=== PATIENT | female | born 1990 | race Caucasian/White ===

== ENCOUNTER → 2016-04-16 | Outpatient (CLI) | payer OTHER ==
--- NOTE | 2016-04-16 19:25 | REP ---
Clinical: Anatomical evaluation. Comparison: None . Findings: Examination demonstrates a single live intrauterine in variable presentation. motion is identified by technologist. Placenta is noted posteriorly and grade zero without evidence for placenta previa or abruption. Amniotic fluid volume is normal. Cervix measures 4.0 cm in length and appears closed. No evidence for nuchal cord. Gestational age by LMP 20 weeks 0 days with HENRY 09/03/2016 . Gestational age by current measurements 20 weeks 1 day with HENRY 09/02/2016 . FHR equals 136 beats per minute. BPD 4.6 cm 19 weeks 6 days HC 16.8 cm 19 weeks 3 days AC 16.0 cm 21 weeks 1 day FL 3.2 cm 19 weeks 6 days HL 3.1 cm 20 weeks 0 days HC/AC ratio 1.05 Estimated weight 353 grams ( 63rd percentile). Anatomical assessment demonstrates normal structures including cranium, choroid plexus, cavum, cerebellum/posterior fossa, facial features, lungs, diaphragm, stomach, cord insertion/three-vessel cord, bladder, spine, and extremities. Limited evaluation of the heart/ventricular outflow tract and kidneys. Impression: 1. Single live intrauterine in variable presentation demonstrating appropriate interval growth. 2. Limited evaluation of the heart and kidneys. Remainder of the anatomical assessment is complete and normal. Signed by Dilan Burns MD 04/16/2016 07:17 P
== END ==
LOC: M RAD 17:01
PROVIDERS: ATTEND Advanced Practice Midwife
DX: Z36 Encounter for antenatal screening of mother (principal); Z3A.20 20 weeks gestation of pregnancy

== ENCOUNTER → 2016-05-13 | Outpatient (CLI) | payer OTHER ==
--- NOTE | 2016-05-14 06:55 | REP ---
Clinical: Anatomical evaluation. Comparison: 04/16/2016 . Findings: Examination demonstrates a single live intrauterine in cephalic presentation. motion is identified by technologist. Placenta is noted posteriorly and grade 0 without evidence for placenta previa or abruption. Anterior succenturiate lobe noted. Amniotic fluid volume is normal. Cervix measures 4.4 cm in length and appears closed. No evidence for nuchal cord. Gestational age by LMP 23 week 6 days with HENRY 09/03/2016 . Gestational age by current measurements 24 weeks 1 day with HENRY 09/01/2016 . FHR equals 149 beats per minute. Estimated weight 663 grams ( eight 51st percentile). Anatomical assessment demonstrates normal structures including cranium, choroid plexus, cavum, cerebellum/posterior fossa, facial features, lungs, four-chamber heart/ventricular outflow tracts, diaphragm, stomach, cord insertion/three-vessel cord, kidneys/bladder, spine, and extremities. Impression: 1. Single live intrauterine in cephalic presentation demonstrating appropriate interval growth. 2. Anatomical assessment is complete and normal. 3. Small anterior succenturiate lobe to the placenta. Signed by Dilan Burns MD 05/14/2016 06:48 A
== END ==
LOC: M RAD 15:54
PROVIDERS: ATTEND Advanced Practice Midwife
DX: Z36 Encounter for antenatal screening of mother (principal); Z3A.24 24 weeks gestation of pregnancy

== ENCOUNTER → 2016-05-18 | Outpatient (REF) | payer OTHER | LOC: M LAB REF 09:37 | PROVIDERS: ATTEND Advanced Practice Midwife | DX: K91.2 Postsurgical malabsorption, not elsewhere classified (principal) ==

== ENCOUNTER → 2016-06-11 | Outpatient (CLI) | payer OTHER ==
[2016-06-11 13:27] LABS: MEAN CORPUSCULAR HEMOGLOBIN 31.2 pg (27.0-33.0); MEAN CORPUSCULAR HGB CONC 32.9 g/dl (32.0-36.5); MEAN CORPUSCULAR VOLUME 94.9 fl (80.0-96.0); RED CELL DISTRIBUTION WIDTH 13.5 % (11.5-14.5)
== END ==
LOC: M SMT 10:45
PROVIDERS: ATTEND Advanced Practice Midwife
DX: Z36 Encounter for antenatal screening of mother (principal)
CPT/HCPCS: 36415; 85027; 86850; 86900; 86901; J2790

== ENCOUNTER → 2016-07-08 | Outpatient (CLI) | payer OTHER ==
--- NOTE | 2016-07-09 05:01 | REP ---
Clinical: Growth evaluation. Comparison: 05/13/2016 . Findings: Examination demonstrates a single live intrauterine in cephalic presentation. motion is identified by technologist. Placenta is noted posteriorly and grade II without evidence for placenta previa or abruption. Amniotic fluid volume is normal. Cervix measures 3.8 cm in length and appears closed. Nuchal cord cannot be excluded. Gestational age by LMP 31 weeks 6 days with HENRY 09/03/2016 . Gestational age by current measurements 32 weeks 4 day with HENRY 08/29/2016 . FHR equals 163 beats per minute. Estimated weight 2114 grams ( 68th percentile). Amniotic fluid index equals 22.2 cm. Limited anatomical assessment is unremarkable. Impression: Single live advanced gestation in cephalic presentation demonstrating appropriate interval growth. Nuchal cord cannot be excluded. Amniotic fluid index upper limits of normal. No gross abnormalities identified. Signed by Dilan Burns MD 07/09/2016 04:52 A
== END ==
LOC: M RAD 15:45
PROVIDERS: ATTEND Obstetrics & Gynecology
DX: Z36 Encounter for antenatal screening of mother (principal); Z3A.31 31 weeks gestation of pregnancy

== ENCOUNTER → 2016-08-05 | Outpatient (REF) | payer OTHER | LOC: M LAB REF 12:55 | PROVIDERS: ATTEND Obstetrics & Gynecology | DX: Z36 Encounter for antenatal screening of mother (principal) ==

== ENCOUNTER → 2016-08-26 | Outpatient (CLI) | payer OTHER ==
[~2016-08-26] MED LIST: ACET50TA PO; IBUP-1114 PO; PRENTAB55 PO
--- NOTE | 2016-08-26 21:02 | REP ---
Clinical: Growth evaluation. Comparison: 07/08/2016 . Findings: Examination demonstrates a single live intrauterine in cephalic presentation. motion is identified by technologist. Placenta is noted posteriorly and grade III without evidence for placenta previa or abruption. Small anterior succenturiate lobe cannot be excluded. Amniotic fluid volume is normal. No evidence for nuchal cord. Gestational age by LMP 38 weeks 6 days with HENRY 09/03/2016 . Gestational age by current measurements 38 weeks 2 days with HENRY 09/07/2016 . FHR equals 168 beats per minute. BPD 9.5 cm 38 weeks 6 days HC 34.0 cm 39 weeks 1 day AC 39.1 cm - - FL 7.3 cm 37 weeks 3 days HL 6.5 cm 37 weeks 4 days HC/AC ratio 0.87 Estimated weight 4275 grams (greater than 97 percentile). Amniotic fluid index equals 20.2 cm (7.2 - 22.7). Impression: 1. Single live intrauterine in cephalic presentation. 2. measurements as described above. 3. The estimated weight may not be accurate as abdominal circumference measurements were not included in the calculations. 4. Amniotic fluid volume within normal limits. Signed by Dilan Burns MD 08/26/2016 08:54 P
== END ==
LOC: M RAD 16:55
PROVIDERS: ATTEND Advanced Practice Midwife
DX: Z36 Encounter for antenatal screening of mother (principal)

== ENCOUNTER 2016-08-30 02:05 | Inpatient (IN) | payer OTHER ==
[2016-08-30] VITALS (34 sets, daily range): BP systolic 100–151; BP diastolic 52–77
[~2016-08-30] VITALS: Ht 165.1 cm; Wt 102.0 kg
[2016-08-30] MEDS ORDERED: PRENTAB55 PO (03:20)
[2016-08-30] MEDS ORDERED: LACTATED RINGER'S 1000 ML IV STA (04:54)
[2016-08-30] MEDS ORDERED: BUTORPHANOL 2 MG/ML INJ (J0595) IV ONE (05:00)
[2016-08-30] MEDS ORDERED: PROMETHAZINE INJ 25 MG/ML VIAL (J2550) IM ONE (05:00)
[2016-08-30 05:08] LABS: MEAN CORPUSCULAR HEMOGLOBIN 30.9 pg (27.0-33.0); MEAN CORPUSCULAR HGB CONC 33.6 g/dl (32.0-36.5); MEAN CORPUSCULAR VOLUME 92.1 fl (80.0-96.0); RED CELL DISTRIBUTION WIDTH 13.6 % (11.5-14.5); WHITE BLOOD COUNT 12.8 K/mm3 (4.0-10.0)
--- NOTE | 2016-08-30 06:19 | HPE ---
DATE OF ADMISSION: 08/30/2016 26-year-old 1, estimated date of delivery 09/03/2016 presents at 39 weeks 3 days with reports of loss of fluid and contractions starting around 0030. Denies bleeding. Fetus is active. Last normal menstrual period 11/28/2015 for HENRY of 09/03/2016, sonogram at 8 weeks confirmed date. Anatomy scan within normal limits except for possible succenturiate lobe. Growth sonogram 08/26 shows SIUP vertex. Estimated weight 4275 grams. No known drug allergies. Medical-surgical: Gastric bypass in 2011. Family history of developmental delay. SOCIAL HISTORY: Single. Father of the baby present and supportive. Denies tobacco, alcohol, drugs or abuse. OBJECTIVE: Prepregnancy weight 190, total weight gain 42 pounds. A negative, antibody negative, received RhoGAM, rubella immune, VDRL, Hep B, Hep C, HIV, gonorrhea, Chlamydia all negative. 1-hour glucose not done due to history of bypass. Glucose was monitored times 1 week with normal values. Group B strep is negative. Vital signs are stable. She is breathing with contractions. Abdomen is soft, gravid, longitudinal lie. Bedside sonogram confirms vertex presentation. heart 135, moderate variability with excels. Uterine contractions difficult to trace due to habitus and patient motion. Patient and partner state they are about 3-5 minutes apart. Sterile speculum exam moderate pooling of milky fluid. Negative Nitrazine. Negative fern. Sterile vaginal exam initially 3 cm, 90% -3 station. Progressed to 5 cm, 90% -2 station with a bulging bag of water. ASSESSMENT: Primipara at term, active labor, category 1 tracing. PLAN: Admit. The patient is considering IV meds versus epidural. Anticipate normal spontaneous vaginal . MTDD
[2016-08-30] MEDS: PRENATAL VITAMINS CHEWABLE TABLET PO SCH (09:00)
[2016-08-30] MEDS ORDERED: FENTANYL 2MCG/ML ROPIVACAINE 0.2% IN 0.9% NACL 200ML IVBAG As Ordered ONE (09:35)
[2016-08-30] MEDS ORDERED: ONDANSETRON 4MG/2ML VIAL (J2405) IV PRN ×2 (12:00→19:45)
[2016-08-30] MEDS ORDERED: EPIDURAL/PCA KEYS XX PRN (12:00)
[2016-08-30] MEDS ORDERED: ePHEDrine SULFATE 25 MG/5 ML(5MG/ML) SYRINGE IV PRN (12:00)
[2016-08-30] MEDS ORDERED: NALOXONE INJ 0.4 MG/1 ML VIAL (J2310) IV PRN (12:00)
[2016-08-30] MEDS ORDERED: FENTANYL/ROPIVACAINE/NACL BAG 200 ML EPIDURAL SCH (12:00)
[2016-08-30] MEDS ORDERED: LACTATED RINGER'S 1000 ML IV PRN (12:00)
[2016-08-30] MEDS ORDERED: REFRIGERATOR IV KEYS XX PRN (12:00)
[2016-08-30] MEDS ORDERED: LR 1,000 ML IV SCH (12:00)
[2016-08-30] MEDS ORDERED: EPIDURAL COMMENT XX SCH (12:00)
[2016-08-30] MEDS ORDERED: diphenhydrAMINE INJ 50MG/ML VIAL (J1200) IV PRN (12:00)
[2016-08-30] MEDS ORDERED: OXYTOCIN 30 UNITS IN 0.9% NaCl 500ML IV BAG (J2590) As Ordered ONE (16:51)
[2016-08-30] MEDS ORDERED: OXYTOCIN DRIP 30 UNITS in APPROPRIATE DILUENT 1 EA IV SCH ×2 (17:45→19:34)
[2016-08-30] MEDS: LR 1,000 ML IV SCH ×2 (19:34→23:37)
[2016-08-30] MEDS ORDERED: RHOGAM 300 MCG (1500 IU) INJ (J2790) IM SCH (19:45)
[2016-08-30] MEDS ORDERED: IBUPROFEN 800 MG TAB PO PRN (19:45)
[2016-08-30] MEDS ORDERED: PROMETHAZINE 25 MG TAB PO PRN (19:45)
[2016-08-30] MEDS ORDERED: DOCUSATE SODIUM 100 MG CAP PO PRN (19:45)
[2016-08-30] MEDS ORDERED: MEASLES,MUMPS,RUBELLA VACCINE INJ (MMR-II) (90707) SC SCH (19:45)
[2016-08-30] MEDS ORDERED: DIBUCAINE 1% OINTMENT 30GM TOP PRN (19:45)
[2016-08-30] MEDS: OXYTOCIN DRIP 30 UNITS in APPROPRIATE DILUENT 1 EA IV SCH ×2 (19:52→19:53)
[2016-08-30] MEDS: ACETAMINOPHEN 500 MG TAB PO PRN (21:36)
[2016-08-31] MEDS ORDERED: LIDOCAINE 1% MDV INJ 50 ML VIAL INFIL ONE (01:45)
[2016-08-31] MEDS: ACETAMINOPHEN 500 MG TAB PO PRN ×3 (05:26→22:07)
[2016-08-31 06:07] VITALS: BP 114/59
[2016-08-31] MEDS: PRENATAL VITAMINS CHEWABLE TABLET PO SCH (08:36)
[2016-08-31] MEDS: LR 1,000 ML IV SCH ×2 (16:57→19:19)
[2016-08-31 18:02] VITALS: BP 130/66
[2016-09-01 05:53] VITALS: BP 109/58
[2016-09-01] MEDS: PRENATAL VITAMINS CHEWABLE TABLET PO SCH (08:57)
[2016-09-01] MEDS ORDERED: IBUP-1114 PO (09:53)
[2016-09-01] MEDS ORDERED: ACET50TA PO (09:53)
[2016-09-01] MEDS: ACETAMINOPHEN 500 MG TAB PO PRN (10:39)
== END 2016-09-01 14:00 | disposition home or self-care (01) | DRG 767 ==
LOC: M LDO 02:05 → M LDI 04:45 → M OBS 21:22
PROVIDERS: ADMIT Advanced Practice Midwife; ATTEND Advanced Practice Midwife
PROC: 10D17ZZ Extraction of Products of Conception, Retained, Via Natural or Artificial Opening (ICD-10-PCS; principal; 2016-08-30)
PROC: 0KQM0ZZ Repair Perineum Muscle, Open Approach (ICD-10-PCS; 2016-08-30)
PROC: 10E0XZZ Delivery of Products of Conception, External Approach (ICD-10-PCS; 2016-08-30)
PROC: 10907ZC Drainage of Amniotic Fluid, Therapeutic from Products of Conception, Via Natural or Artificial Opening (ICD-10-PCS; 2016-08-30)
PROC: 30233S1 Transfusion of Nonautologous Globulin into Peripheral Vein, Percutaneous Approach (ICD-10-PCS; 2016-08-31)
DX: O43.193 Other malformation of placenta, third trimester (principal); Z37.0 Single live birth; O72.2 Delayed and secondary postpartum hemorrhage; Z3A.39 39 weeks gestation of pregnancy; Z82.8 Family history of other disabilities and chronic diseases leading to disablement, not elsewhere classified; O70.1 Second degree perineal laceration during delivery; Z98.84 Bariatric surgery status

== ENCOUNTER → 2017-10-18 | Outpatient (REF) | payer OTHER | LOC: M LAB REF 08:32 | DX: Z12.4 Encounter for screening for malignant neoplasm of cervix (principal) ==

== ENCOUNTER → 2017-12-29 | Outpatient (CLI) | payer OTHER ==
[2017-12-29 14:44] LABS: BASO % 0.4 % (0.0-1.0); EOS # 0.1 10^3/uL (0.0-0.50); EOS % 0.9 % (0.0-3.0); HEMATOCRIT 41.8 % (36.0-47.0); HEMOGLOBIN 14.2 g/dl (12.0-15.5); IMMATURE GRANULOCYTE % 0.4 % (0-3.0); LYMPH # 1.7 10^3/uL (1.5-6.5); LYMPH % 16.2 % (24.0-44.0); MEAN CORPUSCULAR HEMOGLOBIN 30.7 pg (27.0-33.0); MEAN CORPUSCULAR VOLUME 90.5 fl (80.0-96.0); MONO # 0.6 10^3/uL (0.0-0.8); NEUTROPHILS # 7.8 10^3/uL (1.8-7.7); NEUTROPHILS % 76.1 % (36.0-66.0); PLATELET COUNT, AUTOMATED 247 10^3/uL (150-450); RED BLOOD COUNT 4.62 10^6/uL (4.00-5.40); RED CELL DISTRIBUTION WIDTH 12.6 % (11.5-14.5); WHITE BLOOD COUNT 10.3 10^3/uL (4.0-10.0)
[2017-12-29 16:49] LABS: CHLAMYDIA DNA AMPLIFICATION NEGATIVE (NEGATIVE); GC DNA AMPLIFICATION NEGATIVE (NEGATIVE)
[2017-12-30 14:07] LABS: HBsAg Prenatal NEGATIVE (NEGATIVE); RUBELLA IgG QUALITATIVE IMMUNE (IMMUNE)
[2017-12-30 14:29] LABS: HIV 1&2 SCREEN CENTAUR NEGATIVE (NEGATIVE)
[2017-12-30 14:29] LABS: HEPATITIS C VIRUS ABY INDEX < 0.0 INDEX (<0.8)
== END ==
LOC: M LABDRWAD 11:35
DX: Z36.89 Encounter for other specified antenatal screening (principal)
CPT/HCPCS: 86762

== ENCOUNTER → 2018-03-20 | Outpatient (CLI) | payer OTHER ==
[~2018-03-20] MED LIST changes: -ACET50TA PO; +MAPA500T2 PO
--- NOTE | 2018-03-20 20:09 | REP ---
Clinical: Anatomical evaluation. Comparison: 02/24/2018 . Findings: Examination demonstrates a single live intrauterine in cephalic presentation. motion is identified by technologist. Placenta is noted posterior and grade grade zero without evidence for placenta previa or abruption. Amniotic fluid volume is normal. Cervix measures 4.8 cm in length and appears closed. No evidence for nuchal cord. Gestational age by LMP 21 weeks 3 days with HENRY 07/28/2018 . Gestational age by current measurements 22 weeks 2 days with HENRY 07/22/2018 . FHR equals 153 beats per minute. Estimated weight 523 grams ( 90th percentile). Anatomical assessment demonstrates normal structures including cranium, choroid plexus, cavum, cerebellum/posterior fossa, facial features, lungs, four-chamber heart/right ventricular outflow tract, diaphragm, stomach, cord insertion/three-vessel cord, kidneys/bladder, and spine. Impression: Single live intrauterine in cephalic presentation demonstrating appropriate interval growth. Evaluation of the left cardiac ventricular outflow tract is again limited due to positioning. Remainder of the anatomical assessment is complete and normal. Electronically Signed by Dilan Burns MD 03/20/2018 08:01 P
== END ==
LOC: M RAD 10:02
PROVIDERS: ATTEND Advanced Practice Midwife
DX: Z36.89 Encounter for other specified antenatal screening (principal); Z3A.22 22 weeks gestation of pregnancy; O99.842 Bariatric surgery status complicating pregnancy, second trimester

== ENCOUNTER → 2018-05-05 | Outpatient (CLI) | payer OTHER ==
--- NOTE | 2018-05-05 18:51 | REP ---
OB ULTRASOUND: Real-time sonographic evaluation of the gravid uterus is performed. There is a single living intrauterine gestation. The estimated gestational age is 28 weeks 0 days based. EDC 07/28/2018. Today's measurements indicate appropriate growth. BPD 73 mm = 29 weeks 3 days, at the 80th percentile. HC 259 mm = 28 weeks 1 days, at the 553rd percentile. AC 257 mm = 29 weeks 6 days, at the 87th percentile. Femur length 54 mm = 28 weeks 5 days, at the 66th percentile. HC/AC ratio 1.01 within normal range. Estimated weight 1367 grams at the 74th percentile. Cervix is closed measures 4.2 cm in length. heart rate 136 beats per minute. Amniotic fluid within normal limits. ASPEN 16.5 within normal range of 9.4 to 22.8. SD ratio 3.37 and RI 0.70 within normal range. SEEN/GROSSLY UNREMARKABLE Lateral ventricles Yes Posterior fossa Yes Upper lip Yes Four-chamber heart Yes LVOT Yes RVOT Yes Stomach Yes Cord insertion Yes Three vessel cord Yes Kidneys Yes Bladder Yes Spine Yes position: Breech. Placenta: Fundal and grade 1 with no previa or abruption. Electronically Signed by aZch Bryant MD 05/08/2018 12:23 P
== END ==
LOC: M RAD 16:13
PROVIDERS: ATTEND Obstetrics & Gynecology
DX: O99.842 Bariatric surgery status complicating pregnancy, second trimester (principal); Z3A.38 38 weeks gestation of pregnancy

== ENCOUNTER → 2018-05-15 | Outpatient (CLI) | payer OTHER ==
[2018-05-15 12:36] LABS: HEMOGLOBIN 12.2 g/dl (12.0-15.5); MEAN CORPUSCULAR HEMOGLOBIN 30.8 pg (27.0-33.0); MEAN CORPUSCULAR VOLUME 93.4 fl (80.0-96.0); PLATELET COUNT, AUTOMATED 216 10^3/uL (150-450); RED BLOOD COUNT 3.96 10^6/uL (4.00-5.40); WHITE BLOOD COUNT 9.2 10^3/uL (4.0-10.0)
== END ==
LOC: M LABDRWAD 10:14
PROVIDERS: ATTEND Obstetrics & Gynecology
DX: O99.842 Bariatric surgery status complicating pregnancy, second trimester (principal); Z3A.00 Weeks of gestation of pregnancy not specified
CPT/HCPCS: 36415; 85027; 86780; 86850; 86900; 86901; J2790

== ENCOUNTER → 2018-06-20 | Outpatient (REF) | payer OTHER | LOC: M LAB REF 19:20 | PROVIDERS: ATTEND Physician Assistant Medical | DX: J02.9 Acute pharyngitis, unspecified (principal) ==

== ENCOUNTER → 2018-06-23 | Outpatient (CLI) | payer OTHER ==
--- NOTE | 2018-06-24 07:32 | REP ---
FOLLOWUP OB ULTRASOUND: HISTORY: Growth. COMPARISON: 05/06/2018 A single intrauterine is present in breech presentation. Biparietal diameter 9.3 cm, Gestational age 37 weeks 5 days. Head circumference 33.5 cm, gestational age 38 weeks 2 days Abdominal circumference 32.6 cm, gestational age 36 weeks 3 days Femur length 6.8 cm, gestational 35 weeks 1 day. Humerus length 6.1 cm, gestational age 35 weeks 0 days. heart rate 139 beats per minute. motion is present. weight is 2949 grams. gender is documented as female. The placenta is right lateral in location. There is no placenta previa or abruption. The cord is draped over the neck. The amniotic fluid index is 17.4 cm. Cervix length is 4 cm. IMPRESSION: A single intrauterine is present in breech presentation. Gestational age by ultrasound is 36 weeks 4 days. Electronically Signed by Omar Eugene MD 06/24/2018 07:58 A
== END ==
LOC: M RAD 16:36
PROVIDERS: ATTEND Advanced Practice Midwife
DX: O99.843 Bariatric surgery status complicating pregnancy, third trimester (principal); Z3A.36 36 weeks gestation of pregnancy

== ENCOUNTER → 2018-06-30 | Outpatient (REF) | payer OTHER | LOC: M LAB REF 17:06 | PROVIDERS: ATTEND Specialist | DX: Z34.83 Encounter for supervision of other normal pregnancy, third trimester (principal); Z3A.00 Weeks of gestation of pregnancy not specified ==

== ENCOUNTER 2018-08-01 12:31 | Inpatient (IN) | payer OTHER ==
[~2018-08-01] VITALS: Ht 165.1 cm; Wt 104.6 kg
[2018-08-01 13:01] VITALS: BP 126/71
--- NOTE | 2018-08-01 14:30 | HPE ---
DATE OF ADMISSION: 08/01/2018 28-year-old, (G) 2, para (P) 1, female at 40 and 4/7 weeks gestation by last menstrual period (LMP), consistent with 8 week ultrasound, and expected date of confinement (EDC) of 07/28/2018 who presents for labor induction. The patient presented to the office today with decreased movement overnight. Nonstress test in the office showed decreased variability as well as nonrepetitive late decelerations. There was no movement noted on ultrasound testing in the office. Decision was made given the late gestational age and the nonspecified findings on testing as well as lack of movement to proceed with labor induction. She has occasional contractions, but nothing regular. OBSTETRICAL HISTORY: August 2016 - 39 week vaginal delivery of an 8 pound 10 ounce female infant, no complications. MEDICAL HISTORY: Obesity. SURGICAL HISTORY: Gastric bypass surgery. ALLERGIES: None. SOCIAL HISTORY: Father of the baby is involved. The patient lives in [place], [place]. She denies cigarettes, alcohol and drug use. FAMILY HISTORY: Noncontributory. PHYSICAL EXAMINATION: Blood pressure 124/74. Pulse 84. Afebrile. She is in no apparent distress. Head and neck exam normal. Lungs clear. Heart regular rate and rhythm. Abdomen nontender. Gravid. heart tones Category 1 at the hospital. Sterile Vaginal Exam: 1 cm, 50%, -3, posterior, vertex. Extremities nontender. LABS: Blood type A negative. Rubella immune. RPR nonreactive. GBS negative on 06/30/2018. ASSESSMENT: 28-year-old, G2, P1, female at 40 and 4/7 weeks gestation who presents for labor induction. PLAN: Patient is admitted on 08/01/2018. Risks of induction were discussed.
[2018-08-01 15:06] LABS: HEMATOCRIT 40.3 % (36.0-47.0); HEMOGLOBIN 13.3 g/dl (12.0-15.5); MEAN CORPUSCULAR HEMOGLOBIN 30.2 pg (27.0-33.0); MEAN CORPUSCULAR VOLUME 91.6 fl (80.0-96.0); PLATELET COUNT, AUTOMATED 200 10^3/uL (150-450); WHITE BLOOD COUNT 11.8 10^3/uL (4.0-10.0)
[2018-08-01 15:08] VITALS: BP 130/59
[2018-08-01 15:53] VITALS: BP 128/57
[2018-08-01] MEDS: miSOPROStol 50 MCG 1/2 TAB (S0191) SL SCH ×2 (15:53→20:54)
[2018-08-01 17:26] VITALS: BP 113/67
[2018-08-01 17:38] VITALS: BP 114/58
[2018-08-01 18:36] VITALS: BP 124/55
[2018-08-02] VITALS (14 sets, daily range): BP systolic 109–138; BP diastolic 56–74
[2018-08-02] MEDS: miSOPROStol 50 MCG 1/2 TAB (S0191) SL SCH ×2 (01:19→08:59)
[2018-08-02] MEDS ORDERED: ACETAMINOPHEN 500 MG TAB PO PRN (09:00)
[2018-08-02] MEDS: LR 1,000 ML IV SCH ×2 (13:29→15:26)
[2018-08-02] MEDS ORDERED: OXYTOCIN DRIP 30 UNITS in APPROPRIATE DILUENT 1 EA IV SCH ×2 (13:30→18:52)
[2018-08-02] MEDS ORDERED: LACTATED RINGER'S 1000 ML IV STA (17:24)
[2018-08-02] MEDS ORDERED: LR 1,000 ML IV SCH (17:24)
[2018-08-02] MEDS ORDERED: BICITRA 30ML SOLN UDC PO ONE (17:30)
[2018-08-02] MEDS ORDERED: BICITRA 30ML SOLN UDC As Ordered ONE (17:30)
[2018-08-02] MEDS ORDERED: ceFAZolin 2 GM/D5W 50 ML IV BAG (J0690 PER 500MG) As Ordered ONE (17:30)
[2018-08-02] MEDS ORDERED: KETOROLAC 60 MG/2 ML VIAL (J1885) As Ordered ONE (17:37)
[2018-08-02] MEDS ORDERED: OXYTOCIN INJ 10 UNITS/ML VIAL (J2590) As Ordered ONE (17:37)
[2018-08-02] MEDS ORDERED: dexameTHASONE 4 MG/ML 1ML VIAL (J1100) As Ordered ONE (17:37)
[2018-08-02] MEDS ORDERED: ONDANSETRON 4MG/2ML VIAL (J2405) As Ordered ONE (17:37)
[2018-08-02] MEDS ORDERED: MORPHINE PRES-FREE INJ 10 MG/10 ML VIAL (J2274) As Ordered ONE (17:42)
[2018-08-02] MEDS ORDERED: fentaNYL 100 MCG/2 ML INJECTION (J3010) As Ordered ONE (17:42)
[2018-08-02] MEDS ORDERED: ONDANSETRON 4MG/2ML VIAL (J2405) IV PRN ×2 (18:02→19:15)
[2018-08-02] MEDS ORDERED: NALBUPHINE HCL 10 MG/ML AMP (J2300) IV PRN ×2 (18:02→19:15)
[2018-08-02] MEDS ORDERED: NALOXONE INJ 0.4 MG/1 ML VIAL (J2310) IV PRN ×2 (18:02)
[2018-08-02] MEDS ORDERED: diphenhydrAMINE INJ 50MG/ML VIAL (J1200) IV PRN (18:02)
[2018-08-02] MEDS ORDERED: METOCLOPRAMIDE INJ 10MG/2ML VIAL (J2765) IV PRN (18:02)
[2018-08-02] MEDS ORDERED: MEASLES,MUMPS,RUBELLA VACCINE INJ (MMR-II) (90707) SC SCH (19:00)
[2018-08-02] MEDS ORDERED: PERCOCET 5MG/325MG TAB PO PRN ×2 (19:00→19:15)
[2018-08-02] MEDS ORDERED: RHOGAM 300 MCG (1500 IU) INJ (J2790) IM SCH (19:00)
[2018-08-02] MEDS ORDERED: MOM 30ML SUSPENSION UDC PO PRN (19:00)
[2018-08-02] MEDS ORDERED: MORPHINE 10 MG/ML 1ML VIAL (J2270) IV PRN (19:15)
[2018-08-02] MEDS ORDERED: MEPERIDINE INJ 25 MG/ML VIAL (J2175) IV PRN (19:15)
[2018-08-02] MEDS ORDERED: fentaNYL 100 MCG/2 ML INJECTION (J3010) IV PRN (19:15)
[2018-08-02] MEDS ORDERED: HYDROMORPHONE HCL 0.5 MG/ 0.5 ML SYRINGE (J1170 PER 1) IV PRN (19:15)
[2018-08-02 19:30] LABS: CORD GAS HCO3 V 22.1 MEQ/L; CORD GAS O2 SAT V 76.1 %; CORD GAS PCO2 V 40.1 mmHg; CORD GAS PH V 7.36 UNITS; CORD GAS PO2 V 35.1 mmHg; CORD GAS SBC V 21.5 MEQ/L; CORD GAS TCO2 V 23.4 MEQ/L
[2018-08-02 19:31] LABS: CORD GAS ABE A -2.1; CORD GAS HCO3 A 26.1 MEQ/L; CORD GAS PCO2 A 58.9 mmHg; CORD GAS PH A 7.264 UNITS; CORD GAS PO2 A 24.5 mmHg; CORD GAS SBC A 21.6 MEQ/L; CORD GAS TCO2 A 27.9 MEQ/L
[2018-08-02] MEDS: DOCUSATE SODIUM 100 MG CAP PO SCH (21:00)
[2018-08-02] MEDS: KETOROLAC 30 MG/ML VIAL (J1885) IV SCH (22:03)
[2018-08-02] MEDS: PERCOCET 5MG/325MG TAB PO PRN (23:44)
[2018-08-03 02:00] VITALS: BP 110/64
[2018-08-03] MEDS: KETOROLAC 30 MG/ML VIAL (J1885) IV SCH ×2 (03:36→09:49)
[2018-08-03] MEDS: LR 1,000 ML IV SCH (03:45)
[2018-08-03 05:44] VITALS: BP 109/66
[2018-08-03 06:03] LABS: HEMATOCRIT 34.8 % (36.0-47.0); HEMOGLOBIN 11.4 g/dl (12.0-15.5); MEAN CORPUSCULAR HEMOGLOBIN 30.8 pg (27.0-33.0); MEAN CORPUSCULAR HGB CONC 32.8 g/dl (32.0-36.5); MEAN CORPUSCULAR VOLUME 94.1 fl (80.0-96.0); PLATELET COUNT, AUTOMATED 175 10^3/uL (150-450); WHITE BLOOD COUNT 21.1 10^3/uL (4.0-10.0)
--- NOTE | 2018-08-03 07:13 | RO ---
DATE OF PROCEDURE: 08/02/2018 Reta is a 28-year-old female, para 1, who was admitted at 40 and 4 weeks' gestation due to decreased movement. She was admitted for induction. She underwent three Cytotec. She had a Category II tracing. After extensive counseling and given the fact that she was remote from delivery, a decision was made to proceed with a primary section. PREOPERATIVE DIAGNOSES: 1. Intrauterine at 40-4/7 weeks gestation. 2. Category II heart rate tracing remote from delivery. POSTOPERATIVE DIAGNOSES: 1. Intrauterine at 40-4/7 weeks gestation. 2. Category II heart rate tracing remote from delivery. 3. Meconium-stained fluid. 4. Nuchal cord times one. 5. macrosomia. SURGEON: Dr. Bib Lay TAXI DRIVER SUPERVISOR: Rajwinder Benton ANESTHESIA: Spinal. COMPLICATIONS: None. ESTIMATED BLOOD LOSS: 600 mL. FINDINGS: Live female infant in occiput transverse position with nuchal cord times one. 9 and 9. weight 9 pounds 7 ounces. Placenta delivered manually, intact, meconium-stained fluid noted. DESCRIPTION OF PROCEDURE: After obtaining informed consent, the patient was taken to the operating room where spinal anesthetic was found to be adequate. She was then draped and prepped in the usual sterile fashion in the supine position. At this point, a Pfannenstiel incision was made. This was carried down to the fascia. The fascia was incised in midline fashion and carried through laterally with the help of angelica Schreiber assistant manager. The peritoneum was identified. Peritoneal cavity entered bluntly. A Mobius skin retractor was placed. A low-transverse uterine incision was made and the infant was delivered in atraumatic fashion. Nose and mouth bulb suctioned. Cord doubly clamped and cut and infant was handed over to awaiting warmer. Cord blood and cord gas was sent. Placenta removed manually. Uterus cleared of all clot and debris. The uterine incision was then repaired in two separate layers of #0 Vicryl sutures. All superficial bleeders were coagulated. The pelvis copiously irrigated with normal saline and suctioned out. Attention turned to the peritoneum which was closed in a running fashion using #2-0 Vicryl. The fascia closed in two separate segments of #0 Vicryl sutures. All superficial bleeders coagulated. The skin was reapproximated in subcuticular fashion using #3-0 Vicryl on a Shiva. Steri-Strips placed. The patient tolerated the procedure well. She was then transferred to recovery room in stable condition.
[2018-08-03] MEDS: PRENATAL VITAMINS CHEWABLE TABLET PO SCH (09:49)
[2018-08-03] MEDS: DOCUSATE SODIUM 100 MG CAP PO SCH ×2 (09:49→22:43)
[2018-08-03 10:00] VITALS: BP 108/56
[2018-08-03 14:30] VITALS: BP 125/66
[2018-08-03 18:00] VITALS: BP 110/57
[2018-08-03] MEDS ORDERED: IBUPROFEN 800 MG TAB PO SCH (18:00)
[2018-08-03] MEDS: PERCOCET 5MG/325MG TAB PO PRN (19:16)
[2018-08-03 22:30] VITALS: BP 89/52
[2018-08-04] MEDS: PERCOCET 5MG/325MG TAB PO PRN ×3 (00:06→10:30)
[2018-08-04 01:58] VITALS: BP 110/74
[2018-08-04 05:50] VITALS: BP 108/55
[2018-08-04] MEDS ORDERED: COLA100C5 PO (07:10)
[2018-08-04] MEDS ORDERED: PERCOCET PO (07:10)
[2018-08-04] MEDS: PRENATAL VITAMINS CHEWABLE TABLET PO SCH (08:46)
[2018-08-04] MEDS: DOCUSATE SODIUM 100 MG CAP PO SCH (08:46)
== END 2018-08-04 12:25 | disposition home or self-care (01) | DRG 807 ==
LOC: M LDI 12:31 → M OBS 08-02 20:15
PROVIDERS: ADMIT Specialist; ATTEND Obstetrics & Gynecology
PROC: 3E0P7GC Introduction of Other Therapeutic Substance into Female Reproductive, Via Natural or Artificial Opening (ICD-10-PCS; 2018-08-01)
PROC: 10E0XZZ Delivery of Products of Conception, External Approach (ICD-10-PCS; principal; 2018-08-02 17:30)
DX: O48.0 Post-term pregnancy (principal); Z37.0 Single live birth; Z3A.40 40 weeks gestation of pregnancy; O76 Abnormality in fetal heart rate and rhythm complicating labor and delivery; O36.63X0 Maternal care for excessive fetal growth, third trimester, not applicable or unspecified; O77.0 Labor and delivery complicated by meconium in amniotic fluid; O69.81X0 Labor and delivery complicated by cord around neck, without compression, not applicable or unspecified

== ENCOUNTER → 2018-10-16 | Outpatient (CLI) | payer OTHER ==
[~2018-10-16] MED LIST changes: +COLA100C5 PO; +PERCOCET PO
== END ==
LOC: M SMT 11:55
PROVIDERS: ATTEND Advanced Practice Midwife
DX: R91.1 Solitary pulmonary nodule (principal)

== ENCOUNTER → 2018-12-08 | Outpatient (REF) | payer OTHER | LOC: M LABDRWAD 10:00 | PROVIDERS: ATTEND Advanced Practice Midwife | DX: F53.0 Postpartum depression (principal) ==

== ENCOUNTER → 2021-08-12 | Outpatient (CLI) | payer OTHER ==
[2021-08-12 17:50] LABS: BASO # 0.1 10^3/uL (0.0-0.2); BASO % 0.8 % (0.0-1.0); EOS # 0.2 10^3/uL (0.0-0.5); EOS % 2.2 % (0.0-3.0); HEMATOCRIT 39.4 % (36.0-47.0); HEMOGLOBIN 12.6 g/dl (12.0-15.5); LYMPH # 2.1 10^3/uL (1.5-5.0); MEAN CORPUSCULAR HEMOGLOBIN 28.6 pg (27.0-33.0); MEAN CORPUSCULAR VOLUME 89.5 fl (80.0-96.0); MONO # 0.6 10^3/uL (0.0-0.8); MONO % 8.5 % (2.0-8.0); NEUTROPHILS # 4.5 10^3/uL (1.5-8.5); NEUTROPHILS % 60.2 % (36.0-66.0); PLATELET COUNT, AUTOMATED 321 10^3/uL (150-450); WHITE BLOOD COUNT 7.4 10^3/uL (4.0-10.0)
[2021-08-12 18:39] LABS: ALBUMIN 3.9 GM/DL (3.2-5.2); ALT/SGPT 19 U/L (12-78); BILIRUBIN,TOTAL 0.3 MG/DL (0.2-1.0); BLOOD UREA NITROGEN 15 MG/DL (7-18); CALCIUM LEVEL 8.9 MG/DL (8.5-10.1); CARBON DIOXIDE LEVEL 26 MEQ/L (21-32); CHLORIDE LEVEL 111 MEQ/L (98-107); CREATININE FOR GFR 0.98 MG/DL (0.55-1.30); FREE T4 0.83 NG/DL (0.76-1.46); GLOMERULAR FILTRATION RATE > 60.0 (>60); GLUCOSE, FASTING 38 MG/DL (70-100); SODIUM LEVEL 143 MEQ/L (136-145); THYROID STIMULATING HORMONE 0.803 uIU/ML (0.358-3.740); TOTAL PROTEIN 6.8 GM/DL (6.4-8.2)
== END ==
LOC: M LAB 16:44
PROVIDERS: ATTEND Nurse Practitioner Family
DX: R53.83 Other fatigue (principal)

== ENCOUNTER → 2021-08-25 | Outpatient (REF) | payer OTHER | LOC: M SFHCWAGY 17:39 | PROVIDERS: ATTEND Obstetrics & Gynecology | DX: Z12.4 Encounter for screening for malignant neoplasm of cervix (principal) ==

== ENCOUNTER → 2022-10-11 | Outpatient (CLI) | payer OTHER ==
[2022-10-11 15:24] LABS: BASO % 0.4 % (0.0-1.0); EOS # 0.1 10^3/uL (0.0-0.5); HEMATOCRIT 40.2 % (36.0-47.0); HEMOGLOBIN 13.1 g/dl (12.0-15.5); LYMPH # 2.4 10^3/uL (1.5-5.0); LYMPH % 24.5 % (24.0-44.0); MEAN CORPUSCULAR HEMOGLOBIN 28.5 pg (27.0-33.0); MEAN CORPUSCULAR HGB CONC 32.6 g/dl (32.0-36.5); MEAN CORPUSCULAR VOLUME 87.4 fl (80.0-96.0); MONO # 0.7 10^3/uL (0.0-0.8); MONO % 7.3 % (2.0-8.0); NEUTROPHILS # 6.4 10^3/uL (1.5-8.5); NEUTROPHILS % 66.4 % (36.0-66.0); PLATELET COUNT, AUTOMATED 307 10^3/uL (150-450); WHITE BLOOD COUNT 9.6 10^3/uL (4.0-10.0)
[2022-10-11 15:53] LABS: FOLATE 19.7 NG/ML (>5.4); TOTAL 25(OH) VITAMIN D 80.9 NG/ML (20.0-100.0); VITAMIN B12 LEVEL 408 PG/ML (211-911)
[2022-10-11 15:54] LABS: ALBUMIN 3.7 G/DL (3.2-5.2); ALKALINE PHOSPHATASE 71 U/L (46-116); CALCIUM LEVEL 9.2 MG/DL (8.5-10.1); CARBON DIOXIDE LEVEL 25 MMOL/L (20-31); CHLORIDE LEVEL 106 MMOL/L (98-107); FERRITIN 7.7 NG/ML (7.3-270.7); POTASSIUM SERUM 4.1 MMOL/L (3.5-5.1); SODIUM LEVEL 140 MMOL/L (136-145); TOTAL IRON BINDING CAPACITY 445 UG/DL (250-425)
[2022-10-11 15:58] LABS: ALT/SGPT 12 U/L (7.0-40); AST/SGOT 9 U/L (<34); BILIRUBIN,TOTAL 0.4 MG/DL (0.3-1.2); BLOOD UREA NITROGEN 9 MG/DL (9-23); CHOLESTEROL LEVEL 174 MG/DL (<200); CHOLESTEROL RISK RATIO 2.82 (<5); CREATININE FOR GFR 0.91 MG/DL (0.55-1.30); GLOMERULAR FILTRATION RATE > 60.0 (>60); GLUCOSE, FASTING 84 MG/DL (60-100); HDL CHOLESTEROL 61.5 MG/DL (>40); IRON (FE) 100 UG/DL (50-170); LDL CHOLESTEROL 88.9 MG/DL (<100); MAGNESIUM LEVEL 2.2 MG/DL (1.8-2.4); NON-HDL-C 112.5 MG/DL; PERCENT SATURATION 22.5 % (13.2-45.0); TOTAL PROTEIN 6.6 G/DL (5.7-8.2); TRIGLYCERIDES LEVEL 118 MG/DL (<150)
[2022-10-11 17:46] LABS: HEMOGLOBIN A1c 5.6 % (4.0-6.0)
== END ==
LOC: M LAB 14:36
PROVIDERS: ATTEND Nurse Practitioner Family
DX: Z98.84 Bariatric surgery status (principal)

== ENCOUNTER → 2023-03-17 | Outpatient (REF) | payer OTHER | LOC: M SFHCWAGY 12:57 | PROVIDERS: ATTEND Obstetrics & Gynecology | DX: Z12.4 Encounter for screening for malignant neoplasm of cervix (principal) | CPT/HCPCS: 87624; G0123 ==

== ENCOUNTER → 2025-02-18 | Outpatient (REF) | payer OTHER ==
[2025-02-20 16:02] LABS: HPV APTIMA Not Detected (Not Detected)
== END ==
LOC: M SFHCWAGY 10:16
PROVIDERS: ATTEND Obstetrics & Gynecology
DX: Z12.4 Encounter for screening for malignant neoplasm of cervix (principal)
CPT/HCPCS: 87624; G0123